=== PATIENT | male | born 1970 | race Caucasian/White ===

== ENCOUNTER 2019-10-07 09:10 | Emergency (ER) | payer BC ==
[~2019-10-07] VITALS: Ht 182.9 cm; Wt 91.6 kg
[2019-10-07 09:25] VITALS: Ht 182.9 cm; Wt 91.6 kg
[2019-10-07 11:01] VITALS: BP 98/55
== END 2019-10-07 11:01 | disposition home or self-care (01) ==
LOC: ED 09:10
DX: S52.502A Unspecified fracture of the lower end of left radius, initial encounter for closed fracture (principal); W01.0XXA Fall on same level from slipping, tripping and stumbling without subsequent striking against object, initial encounter; Y93.01 Activity, walking, marching and hiking; Y92.828 Other wilderness area as the place of occurrence of the external cause; Y99.8 Other external cause status
CPT/HCPCS: Q0092